=== PATIENT | male | born 1965 | race African-American/Black ===

== ENCOUNTER 2018-12-25 08:33 | Outpatient (CLI) | payer BC ==
--- NOTE | 2018-12-25 09:17 | RAD ---
F2 views chest: 12/25/2018 COMPARISON: 11/23/2015 HISTORY: Cardiomyopathy FINDINGS: Heart and mediastinal contours are stable. No pneumothorax or pleural fluid. No focal conso lidation or alveolar edema. Heart could be better assessed via echocardiogram given history of cardio myopathy. IMPRESSION: No radiographic evidence of acute cardiopulmonary disease.
--- NOTE | 2018-12-25 09:18 | RAD ---
FKUB: 12/25/2018 COMPARISON: None HISTORY: Anorexia FINDINGS: Supine imaging limits assessment for free air and bowel obstruction. The bowel gas pattern appears nonobstructed. No abnormal calcifications are seen. Osseous structures demonstrate no acute f indings. IMPRESSION: No acute findings.
== END 2018-12-25 08:34 | disposition home or self-care (01) ==
LOC: RAD 08:33
PROVIDERS: ATTEND Family Medicine
DX: I42.9 Cardiomyopathy, unspecified (principal)
CPT/HCPCS: 71046; 74018